=== PATIENT | female | born 1970 | race Caucasian/White ===

== ENCOUNTER 2022-05-10 07:53 | Day surgery (SDC) | payer OTHER ==
--- NOTE | 2022-05-09 10:38 | HP ---
DATE OF SURGERY: 05/10/2022 HISTORY OF PRESENT ILLNESS: The patient is a 51-year-old female presents for screening colonoscopy. She has not had a colonoscopy to date. She denies any GI signs or symptoms. Denies any family history of colon cancer. PAST MEDICAL HISTORY: Anxiety. PAST SURGICAL HISTORY: Breast surgery. Tubal ligation. ALLERGIES: NKDA. MEDICATIONS: None reported. FAMILY HISTORY: Bladder cancer. SOCIAL HISTORY: Occasional alcohol. REVIEW OF SYSTEMS: CONSTITUTIONAL: Denies fever or chills. CHEST: Denies shortness of breath. CVS: Denies chest pain. ABDOMEN: Denies abdominal pain. PHYSICAL EXAMINATION: GENERAL: No acute distress. CHEST: Nonlabored. No shortness of breath. CVS: Regular rate and rhythm. ABDOMEN: Soft. IMPRESSION: Screening. PLAN: Colonoscopy with Dr. Felix Ruffin. As dictated by Celena Trujillo NP.
[2022-05-10] MEDS ORDERED: Lactated Ringers 1,000 ML IV ONE (08:17)
[2022-05-10 08:20] LABS: HCG,QUALITATIVE URINE NEGATIVE (Negative)
[2022-05-10] MEDS: Lactated Ringers 1,000 ML IV SCH (08:23)
[2022-05-10] MEDS ORDERED: Versed 2 MG/2 ML Injection ONE (10:42)
[2022-05-10] MEDS ORDERED: Xylocaine-Mpf 2% 5 Ml Vial ONE (10:42)
[2022-05-10] MEDS ORDERED: DIPRIVAN 200 MG/20 ML IV ONE ×2 (10:42→10:53)
[2022-05-10 11:45] VITALS: BP 120/82; PULSE 78; O2SAT 97
--- NOTE | 2022-05-10 13:43 | OP ---
SURGERY DATE/TIME: 05/10/2022 1050 PREOPERATIVE DIAGNOSIS: Screening. POSTOPERATIVE DIAGNOSIS: A 6 mm ascending colon polyp. PROCEDURES: 1) Colonoscopy complete to cecum. 2) Hot polypectomy x1. SURGEON: Felix Ruffin M.D. ANESTHESIA: MAC. COMPLICATIONS: None. CONDITION: Stable. INDICATION: The patient presents for screening. She is 51. DESCRIPTION OF PROCEDURE: Taken to endoscopy suite. Anal digital examination satisfactory. Scope introduced. The scope advanced. There was some spasm. The scope was able to be advanced up to the cecum. Base of the cecum, ileocecal valve, appendiceal orifice normal. About jail up the ascending was a 6 mm polyp taken with hot biopsy forceps to extinction. Hepatic, transverse, splenic, descending, sigmoid, rectum, anus satisfactory. PLAN: Rescope in five years.
[2022-05-15 08:50] LABS: SURGICAL PATHOLOGY SEE COMMENTS
== END 2022-05-10 11:48 | disposition home or self-care (01) ==
LOC: SDC 07:53
PROVIDERS: ATTEND Surgery
DX: Z12.11 Encounter for screening for malignant neoplasm of colon (principal); K63.5 Polyp of colon
CPT/HCPCS: 81025; J2250; J2704